=== PATIENT | male | born 1975 | race Caucasian/White ===

== ENCOUNTER 2023-02-02 10:31 | Outpatient (CLI) | payer OTHER, SELFPAY | END 2023-02-02 10:32 | disposition home or self-care (01) | LOC: NFLDREF 02-04 10:58 | PROVIDERS: Visit Provider Emergency Medicine | DX: R68.82 Decreased libido (principal); Z13.1 Encounter for screening for diabetes mellitus; Z13.6 Encounter for screening for cardiovascular disorders; Z98.890 Other specified postprocedural states | CPT/HCPCS: 80053; 80061; 84403; 84443 ==